=== PATIENT | female | born 1965 | race Caucasian/White ===

== ENCOUNTER 2021-10-30 02:11 | Emergency (ER) | payer OTHER, MEDICAID ==
[~2021-10-30] VITALS: Ht 162.6 cm; Wt 65.8 kg
[2021-10-30 02:20] VITALS: BP_SYST 117
--- NOTE | 2021-10-30 02:20 | NUR ---
DR. CARR TO SEE PATIENT.
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
[2021-10-30] MEDS ORDERED: HYDROcodone/ACETAMIN 7.5-325 MG TAB PO ONE (02:30)
--- NOTE | 2021-10-30 02:46 | NUR ---
PATIENT TO XRAY AND CT SCAN.
[2021-10-30] MEDS ORDERED: HYDROcodone/ACETAMIN 7.5-325 MG TAB ONE (03:03)
--- NOTE | 2021-10-30 03:56 | NUR ---
Patient given written and verbal discharge instructions and verbalizes understanding. ER MD discussed with patient the results and treatment provided. Patient in stable condition. ID arm band removed. IV catheter removed intact and dressing applied, no active bleeding. Rx of N/A given. Patient educated on pain management and to follow up with PMD. Pain Scale . Opportunity for questions provided and answered. Medication side effect fact sheet provided.
== END 2021-10-30 03:56 | disposition home or self-care (01) ==
LOC: SED 02:11
DX: S00.03XA Contusion of scalp, initial encounter (principal); S20.212A Contusion of left front wall of thorax, initial encounter; S80.12XA Contusion of left lower leg, initial encounter; Z79.899 Other long term (current) drug therapy; V49.40XA Driver injured in collision with unspecified motor vehicles in traffic accident, initial encounter; Y93.89 Activity, other specified; Y92.89 Other specified places as the place of occurrence of the external cause; Y99.8 Other external cause status
CPT/HCPCS: 70450-TC; 71045; 73590-TC; 76376; 99284